=== PATIENT | female | born 1970 | race African-American/Black ===

== ENCOUNTER 2024-04-14 09:20 | Emergency (ER) | payer OTHER ==
[2024-04-14 09:42] VITALS: BP 136/91; PULSE 70; RESP 18; TEMP 97.8; BMI 20.5
[2024-04-14] MEDS ORDERED: IBUPROFEN 600 MG TABLET (FP) PO ONE (11:03)
[2024-04-14] MEDS: IBUPROFEN 600 MG TABLET (FP) PO ONE (11:04)
== END 2024-04-14 12:47 | disposition home or self-care (01) ==
LOC: JERFT 09:20
DX: S46.911A Strain of unspecified muscle, fascia and tendon at shoulder and upper arm level, right arm, initial encounter (principal); M54.2 Cervicalgia; R20.2 Paresthesia of skin; V43.12XA Car passenger injured in collision with other type car in nontraffic accident, initial encounter
CPT/HCPCS: 72125-TC; 73030-TC-RT-FY; 99283-25

== ENCOUNTER 2024-07-10 12:36 | Emergency (ER) | payer OTHER ==
[2024-07-10 12:52] VITALS: BP 164/99; PULSE 74; RESP 18; TEMP 98.6; BMI 22.1
[2024-07-10 13:30] LABS: BASO % 0.8 % (0-2.0); EOS % 3.5 % (0-4.5); HEMATOCRIT 32.8 % (32.4-45.2); HEMOGLOBIN 10.7 GM/dL (10.7-15.3); LYMPH % 39.7 % (8-40); MCHC 32.6 g/dl (32.0-36.0); MEAN CELL VOLUME 85.8 fl (80-96); MEAN PLT VOLUME 8.4 fl (7.5-11.1); MONO % 8.6 % (3.8-10.2); NEUT % 47.4 % (42.8-82.8); PLATELET COUNT 220 10^3/uL (134-434); RBC 3.82 M/mm3 (3.60-5.2); WHITE BLOOD COUNT 5.5 K/mm3 (4.0-10.0)
[2024-07-10 13:58] LABS: CHLORIDE 114 mmol/L (98-107); SODIUM 139 mmol/L (136-145)
[2024-07-10 14:00] LABS: BLOOD UREA NITROGEN 19.9 mg/dL (7-18); CO2 21 mmol/L (21-32)
[2024-07-10 14:01] LABS: ANION GAP 5 mmol/L (4-13); CALCIUM 8.5 mg/dL (8.5-10.1); MAGNESIUM 1.9 mg/dL (1.8-2.4); POTASSIUM 6.2 mmol/L (3.5-5.1)
[2024-07-10 14:03] LABS: GLUCOSE,RANDOM 72 mg/dL (74-106); SGOT/AST 70 U/L (15-37)
[2024-07-10 14:05] LABS: BILIRUBIN,TOTAL 0.2 mg/dL (0.2-1); CREATININE 2.8 mg/dL (0.55-1.3); PHOSPHOROUS 4.5 mg/dL (2.5-4.9); TOT PROT 6.4 g/dl (6.4-8.2)
[2024-07-10 14:06] LABS: SGPT/ALT 51 U/L (13-61)
[2024-07-10 14:08] LABS: ALK PHOS 113 U/L (45-117)
[2024-07-10] MEDS ORDERED: INSULIN REGULAR HUMAN 100 UNITS/ML *VIAL IVPUSH ONE (14:14)
[2024-07-10] MEDS ORDERED: CALCIUM GLUCONATE 10% - 1,000 MG/10 ML VIAL IVPUSH ONE (14:14)
[2024-07-10] MEDS ORDERED: SODIUM ZIRCONIUM CYCLOSILICATE (LOKELMA) 5 GM PACKET PO ONE (14:14)
[2024-07-10] MEDS ORDERED: DEXTROSE 50%-WATER - 25 GM/50 ML VIAL IVPUSH ONE ×2 (14:14→14:19)
[2024-07-10] MEDS ORDERED: ALBUTEROL SO4 0.5 % INH SOLN 2.5 MG/0.5 ML VIAL.NEB. NEB ONE (14:20)
[2024-07-10 14:56] LABS: HIV INTERPRETATION NEGATIVE (NEGATIVE)
[2024-07-10 16:12] LABS: POTASSIUM 5.2 mmol/L (3.5-5.1)
[2024-07-10 16:15] LABS: BLOOD UREA NITROGEN 19.3 mg/dL (7-18); CALCIUM 8.1 mg/dL (8.5-10.1)
[2024-07-10 16:19] LABS: CREATININE 2.7 mg/dL (0.55-1.3)
== END 2024-07-10 19:37 | disposition home or self-care (01) ==
LOC: JER 12:36
DX: E87.5 Hyperkalemia (principal)
CPT/HCPCS: 36415; 80048; 80053; 83735; 84100; 85025; 86803; 87389; 93005; 93010; 99284-25

== ENCOUNTER 2024-07-28 16:04 | Inpatient (IN) | payer OTHER ==
[2024-07-28 18:39] LABS: BASO % 0.2 % (0-2.0); EOS % 3.2 % (0-4.5); HEMATOCRIT 32.5 % (32.4-45.2); HEMOGLOBIN 10.2 GM/dL (10.7-15.3); LYMPH % 44.5 % (8-40); MCHC 31.5 g/dl (32.0-36.0); MEAN CELL VOLUME 88.7 fl (80-96); MEAN PLT VOLUME 8.4 fl (7.5-11.1); MONO % 9.5 % (3.8-10.2); NEUT % 42.6 % (42.8-82.8); PLATELET COUNT 184 10^3/uL (134-434); RBC 3.66 M/mm3 (3.60-5.2); RDW 17.9 % (11.6-15.6); WHITE BLOOD COUNT 4.8 K/mm3 (4.0-10.0)
[2024-07-28 19:07] LABS: CHLORIDE 112 mmol/L (98-107); SODIUM 139 mmol/L (136-145)
[2024-07-28 19:08] LABS: ALBUMIN 2.8 g/dl (3.4-5.0); CALCIUM 7.8 mg/dL (8.5-10.1); CO2 25 mmol/L (21-32)
[2024-07-28 19:09] LABS: BLOOD UREA NITROGEN 20.7 mg/dL (7-18); GLUCOSE,RANDOM 82 mg/dL (74-106); MAGNESIUM 1.7 mg/dL (1.8-2.4)
[2024-07-28 19:11] LABS: SGOT/AST 91 U/L (15-37); SGPT/ALT 49 U/L (13-61)
[2024-07-28 19:12] LABS: CREATININE 2.5 mg/dL (0.55-1.3); PHOSPHOROUS 4.2 mg/dL (2.5-4.9)
[2024-07-28 19:13] LABS: BILIRUBIN,TOTAL 0.6 mg/dL (0.2-1); TOT PROT 5.8 g/dl (6.4-8.2)
[2024-07-28 19:14] LABS: ALK PHOS 92 U/L (45-117)
[2024-07-28 19:21] LABS: ANION GAP 2 mmol/L (4-13); POTASSIUM 6.5 mmol/L (3.5-5.1)
[2024-07-28 20:28] LABS: POTASSIUM 5.9 mmol/L (3.5-5.1)
[2024-07-28 20:33] LABS: CREATININE 2.6 mg/dL (0.55-1.3)
[2024-07-28] MEDS: SODIUM CHLORIDE 0.9% 500 ML INFUS.BAG IV ONE (21:17)
[2024-07-28 21:18] LABS: HIV INTERPRETATION NEGATIVE (NEGATIVE)
[2024-07-28] MEDS: INSULIN ASPART SLIDING SCALE (NOVOLOG) 1 VIAL SQ SCH (23:59)
[2024-07-29] MEDS: MAGNESIUM 1GM/D5W - 1 GM/100 ML IVPB IVPB ONE (00:51)
[2024-07-29] MEDS: TACROLIMUS ANHYDROUS 1 MG CAPSULE PO SCH (00:52)
[2024-07-29] MEDS: MAGNESIUM SULF 50% (8.12 MEQ/2 ML-1 GM VIAL) IVPB ONE (02:53)
[2024-07-29] MEDS ORDERED: HEPARIN NA (PORCINE) 5,000 UNITS/ML 1ML VIAL ONE ×3 (06:37→21:33)
[2024-07-29] MEDS: HEPARIN NA (PORCINE) 5,000 UNITS/ML 1ML VIAL SQ SCH (07:08)
[2024-07-29 07:41] LABS: CHLORIDE 111 mmol/L (98-107); SODIUM 139 mmol/L (136-145)
[2024-07-29 07:52] LABS: POTASSIUM 6.5 mmol/L (3.5-5.1)
[2024-07-29 07:55] LABS: HEMATOCRIT 29.4 % (32.4-45.2); HEMOGLOBIN 9.4 GM/dL (10.7-15.3); MCH 27.9 pg (25.7-33.7); MCHC 31.9 g/dl (32.0-36.0); MEAN CELL VOLUME 87.5 fl (80-96); MEAN PLT VOLUME 8.3 fl (7.5-11.1); PLATELET COUNT 168 10^3/uL (134-434); RBC 3.36 M/mm3 (3.60-5.2); RDW 17.9 % (11.6-15.6); WHITE BLOOD COUNT 4.4 K/mm3 (4.0-10.0)
[2024-07-29 07:57] LABS: ALBUMIN 2.5 g/dl (3.4-5.0); BLOOD UREA NITROGEN 17.7 mg/dL (7-18); GLUCOSE,RANDOM 123 mg/dL (74-106)
[2024-07-29 07:58] LABS: ANION GAP 1 mmol/L (4-13); CALCIUM 8.1 mg/dL (8.5-10.1); CO2 26 mmol/L (21-32)
[2024-07-29 08:00] LABS: CREATININE 2.4 mg/dL (0.55-1.3); SGOT/AST 42 U/L (15-37); SGPT/ALT 40 U/L (13-61)
[2024-07-29 08:01] LABS: BILIRUBIN,TOTAL 0.3 mg/dL (0.2-1)
[2024-07-29 08:02] LABS: ALK PHOS 85 U/L (45-117)
[2024-07-29] MEDS ORDERED: ACETAMINOPHEN 325 MG TABLET (FP) PO PRN (09:23)
[2024-07-29] MEDS ORDERED: amLODIPine BESYLATE 2.5 MG TABLET (FP) ONE (09:29)
[2024-07-29] MEDS ORDERED: FERROUS SO4 325 MG TABLET (FP) ONE (09:30)
[2024-07-29] MEDS: FERROUS SO4 325 MG TABLET (FP) PO SCH (09:42)
[2024-07-29] MEDS: amLODIPine BESYLATE 2.5 MG TABLET (FP) PO SCH (09:42)
[2024-07-29] MEDS: CITALOPRAM HYDROBROMIDE 20 MG TABLET PO SCH (09:42)
[2024-07-29] MEDS: SODIUM ZIRCONIUM CYCLOSILICATE (LOKELMA) 10 GM PACKET PO SCH (09:42)
[2024-07-29] MEDS: CYANOCOBALAMIN 1,000 MCG TABLET (FP) PO SCH (09:43)
[2024-07-29] MEDS: TACROLIMUS ANHYDROUS 5 MG, TACROLIMUS ANHYDROUS 1 MG PO SCH (09:43)
[2024-07-29] MEDS: CHOLECALCIFEROL (VIT D3) 1,000 UNIT (25 MCG) TABLET PO SCH (09:43)
[2024-07-29] MEDS ORDERED: NITROFURANTOIN MONOHYD/M-CRYST 100 MG CAPSULE PO SCH (10:00)
[2024-07-29 11:36] LABS: CHLORIDE 106 mmol/L (98-107); SODIUM 134 mmol/L (136-145)
[2024-07-29 11:38] LABS: BLOOD UREA NITROGEN 16.4 mg/dL (7-18); CO2 24 mmol/L (21-32)
[2024-07-29 11:39] LABS: GLUCOSE,RANDOM 275 mg/dL (74-106)
[2024-07-29 11:42] LABS: CREATININE 2.6 mg/dL (0.55-1.3)
[2024-07-29 11:52] LABS: ANION GAP 3 mmol/L (4-13); POTASSIUM 6.4 mmol/L (3.5-5.1)
[2024-07-29] MEDS: CALCIUM ACETATE 667 MG CAPSULE (FP) PO SCH (17:46)
[2024-07-29] MEDS ORDERED: QUEtiapine FUMARATE 25 MG TABLET ONE (21:32)
[2024-07-29] MEDS ORDERED: MONTELUKAST NA 10 MG TABLET ONE (21:36)
[2024-07-29] MEDS: QUEtiapine FUMARATE 50 MG TABLET PO SCH (22:20)
[2024-07-29] MEDS: MONTELUKAST NA 10 MG TABLET PO SCH (22:20)
[2024-07-30] MEDS ORDERED: HEPARIN NA (PORCINE) 5,000 UNITS/ML 1ML VIAL ONE ×3 (06:04→21:39)
[2024-07-30 08:27] LABS: CHLORIDE 111 mmol/L (98-107); POTASSIUM 6.4 mmol/L (3.5-5.1); SODIUM 138 mmol/L (136-145)
[2024-07-30 08:28] LABS: ANION GAP 7 mmol/L (4-13); BLOOD UREA NITROGEN 17.8 mg/dL (7-18); CALCIUM 8.2 mg/dL (8.5-10.1); CO2 20 mmol/L (21-32)
[2024-07-30 08:29] LABS: GLUCOSE,RANDOM 135 mg/dL (74-106)
[2024-07-30 08:32] LABS: CREATININE 2.5 mg/dL (0.55-1.3)
[2024-07-30] MEDS ORDERED: ALBUTEROL SO4 0.083% IH SOL 2.5 MG/3 ML VIAL.NEB. NEB ONE (12:40)
[2024-07-30] MEDS: ALBUTEROL SO4 0.083% IH SOL 2.5 MG/3 ML VIAL.NEB. NEB ONE (13:34)
[2024-07-30 17:43] LABS: BLOOD UREA NITROGEN 18.4 mg/dL (7-18); CALCIUM 8.1 mg/dL (8.5-10.1); CREATININE 2.5 mg/dL (0.55-1.3)
[2024-07-30 17:46] LABS: POTASSIUM 5.6 mmol/L (3.5-5.1)
[2024-07-30] MEDS ORDERED: QUEtiapine FUMARATE 25 MG TABLET ONE (21:38)
[2024-07-30] MEDS ORDERED: MONTELUKAST NA 10 MG TABLET ONE (21:39)
[2024-07-31 08:06] LABS: BLOOD UREA NITROGEN 19.3 mg/dL (7-18); CALCIUM 8.1 mg/dL (8.5-10.1)
[2024-07-31 08:11] LABS: CREATININE 2.6 mg/dL (0.55-1.3); POTASSIUM 5.6 mmol/L (3.5-5.1)
[2024-07-31 16:39] VITALS: BMI 22.3
[2024-07-31] MEDS: SODIUM CHLORIDE 0.45% 1,000 ML IV SCH (18:40)
[2024-07-31] MEDS: SODIUM ZIRCONIUM CYCLOSILICATE (LOKELMA) 10 GM PACKET PO SCH (21:31)
[2024-08-01 07:46] LABS: BASO % 0.5 % (0-2.0); EOS % 3.4 % (0-4.5); HEMATOCRIT 29.6 % (32.4-45.2); HEMOGLOBIN 9.4 GM/dL (10.7-15.3); LYMPH % 53.4 % (8-40); MCH 27.8 pg (25.7-33.7); MCHC 31.7 g/dl (32.0-36.0); MEAN CELL VOLUME 87.6 fl (80-96); MEAN PLT VOLUME 8.5 fl (7.5-11.1); NEUT % 35.7 % (42.8-82.8); PLATELET COUNT 155 10^3/uL (134-434); RBC 3.37 M/mm3 (3.60-5.2); RDW 17.9 % (11.6-15.6)
[2024-08-01 07:51] LABS: POTASSIUM 5.9 mmol/L (3.5-5.1)
[2024-08-01 07:58] LABS: CALCIUM 8.2 mg/dL (8.5-10.1)
[2024-08-01 07:59] LABS: ALBUMIN 2.4 g/dl (3.4-5.0); BLOOD UREA NITROGEN 20.2 mg/dL (7-18)
[2024-08-01 08:00] LABS: MAGNESIUM 1.7 mg/dL (1.8-2.4)
[2024-08-01 08:02] LABS: CREATININE 2.5 mg/dL (0.55-1.3)
[2024-08-01 08:03] LABS: BILIRUBIN,TOTAL 0.4 mg/dL (0.2-1); TOT PROT 4.9 g/dl (6.4-8.2)
[2024-08-01] MEDS: MAGNESIUM 2GM/50ML STERILE WATER IVPB IVPB ONE (08:18)
[2024-08-01] MEDS: INSULIN (LEVEMIR) 100 UNITS/ML UNITS SQ SCH (09:00)
[2024-08-01 13:55] LABS: POTASSIUM PLASMA 5.3 mmol/L (3.5-5.1)
[2024-08-01] MEDS: METOPROLOL TARTRATE 50 MG TABLET (FP) PO SCH (21:48)
[2024-08-01] MEDS: DEXTROSE 50%-WATER 25 GM/50 ML DISP.SYRIN IVPUSH PRN (23:35)
[2024-08-02 07:25] LABS: BASO % 0.8 % (0-2.0); EOS % 1.7 % (0-4.5); HEMATOCRIT 34.4 % (32.4-45.2); HEMOGLOBIN 10.9 GM/dL (10.7-15.3); LYMPH % 29.4 % (8-40); MCH 28.2 pg (25.7-33.7); MCHC 31.7 g/dl (32.0-36.0); MEAN CELL VOLUME 89.1 fl (80-96); MEAN PLT VOLUME 8.5 fl (7.5-11.1); MONO % 7.3 % (3.8-10.2); NEUT % 60.8 % (42.8-82.8); PLATELET COUNT 170 10^3/uL (134-434); RBC 3.86 M/mm3 (3.60-5.2); RDW 18.2 % (11.6-15.6); WHITE BLOOD COUNT 3.3 K/mm3 (4.0-10.0)
[2024-08-02 07:48] LABS: POTASSIUM 5.7 mmol/L (3.5-5.1)
[2024-08-02 07:55] LABS: CALCIUM 8.5 mg/dL (8.5-10.1)
[2024-08-02 07:56] LABS: ALBUMIN 2.9 g/dl (3.4-5.0); BLOOD UREA NITROGEN 23.9 mg/dL (7-18); MAGNESIUM 2.3 mg/dL (1.8-2.4)
[2024-08-02 07:58] LABS: CREATININE 2.4 mg/dL (0.55-1.3)
[2024-08-02 07:59] LABS: PHOSPHOROUS 4.9 mg/dL (2.5-4.9)
[2024-08-02 08:00] LABS: BILIRUBIN,TOTAL 0.4 mg/dL (0.2-1); TOT PROT 5.8 g/dl (6.4-8.2)
[2024-08-02] MEDS: amLODIPine BESYLATE 5 MG TABLET (FP) PO SCH (09:42)
[2024-08-02] MEDS: INSULIN ASPART SLIDING SCALE (NOVOLOG) 1 VIAL SQ SCH ×2 (11:56→17:53)
[2024-08-02] MEDS ORDERED: DEXTROSE 50%-WATER 25 GM/50 ML DISP.SYRIN IVPUSH PRN (13:12)
[2024-08-02] MEDS: INSULIN (NOVOLOG) ASPART 100 UNITS/ML 10ML VIAL SQ ONE (18:47)
[2024-08-02 19:47] LABS: CHLORIDE 107 mmol/L (98-107); POTASSIUM 5.6 mmol/L (3.5-5.1); SODIUM 134 mmol/L (136-145)
[2024-08-02 19:48] LABS: CALCIUM 7.8 mg/dL (8.5-10.1)
[2024-08-02 19:49] LABS: ANION GAP 4 mmol/L (4-13); BLOOD UREA NITROGEN 23.1 mg/dL (7-18); CO2 23 mmol/L (21-32)
[2024-08-02 19:51] LABS: CREATININE 2.6 mg/dL (0.55-1.3)
[2024-08-02 19:54] LABS: GLUCOSE,RANDOM 499 mg/dL (74-106)
[2024-08-02] MEDS ORDERED: DEXTROSE 50%-WATER 25 GM/50 ML DISP.SYRIN ONE (20:50)
[2024-08-02] MEDS: DEXTROSE 50%-WATER 25 GM/50 ML DISP.SYRIN IVPUSH ONE (21:18)
[2024-08-03] MEDS: INSULIN GLARGINE (LANTUS) 100 UNITS/ML UNITS SQ SCH (06:22)
[2024-08-03 07:12] LABS: BASO % 0.8 % (0-2.0); EOS % 3.7 % (0-4.5); HEMATOCRIT 29.6 % (32.4-45.2); HEMOGLOBIN 9.6 GM/dL (10.7-15.3); LYMPH % 51.3 % (8-40); MCH 28.3 pg (25.7-33.7); MCHC 32.3 g/dl (32.0-36.0); MEAN CELL VOLUME 87.6 fl (80-96); MEAN PLT VOLUME 8.6 fl (7.5-11.1); MONO % 8.1 % (3.8-10.2); NEUT % 36.1 % (42.8-82.8); PLATELET COUNT 148 10^3/uL (134-434); RBC 3.38 M/mm3 (3.60-5.2); RDW 17.8 % (11.6-15.6); WHITE BLOOD COUNT 4.6 K/mm3 (4.0-10.0)
[2024-08-03 07:25] LABS: POTASSIUM 5.3 mmol/L (3.5-5.1)
[2024-08-03 07:32] LABS: CREATININE 2.5 mg/dL (0.55-1.3)
[2024-08-03 07:34] LABS: ALBUMIN 2.4 g/dl (3.4-5.0); BLOOD UREA NITROGEN 23.3 mg/dL (7-18)
[2024-08-03 07:35] LABS: BILIRUBIN,TOTAL 0.3 mg/dL (0.2-1); TOT PROT 4.9 g/dl (6.4-8.2)
[2024-08-03 07:36] LABS: CALCIUM 8.1 mg/dL (8.5-10.1)
[2024-08-03 07:37] LABS: MAGNESIUM 2.1 mg/dL (1.8-2.4)
[2024-08-03] MEDS: INSULIN GLARGINE (LANTUS) 100 UNITS/ML UNITS SQ ONE (10:51)
[2024-08-03 15:25] VITALS: BP 145/93; PULSE 77; RESP 18; TEMP 98.1
[2024-08-07 19:07] LABS: RENIN ACTIVITY(PRA) < 0.167 ng/mL/hr (0.167-5.380)
== END 2024-08-03 15:38 | disposition home or self-care (01) | DRG 420 ==
LOC: JER 16:04 → JERBED 20:49 → J4W 07-30 22:39 → OBSVTOIN 08-02 09:37
PROVIDERS: ADMIT Internal Medicine; ATTEND Internal Medicine
DX: E11.649 Type 2 diabetes mellitus with hypoglycemia without coma (principal); E87.5 Hyperkalemia; E11.22 Type 2 diabetes mellitus with diabetic chronic kidney disease; R74.01 Elevation of levels of liver transaminase levels; D64.9 Anemia, unspecified; E83.42 Hypomagnesemia; I12.9 Hypertensive chronic kidney disease with stage 1 through stage 4 chronic kidney disease, or unspecified chronic kidney disease; N18.4 Chronic kidney disease, stage 4 (severe); E83.39 Other disorders of phosphorus metabolism
CPT/HCPCS: 36415; 71046-TC-FY; 80048; 80053; 82088; 82436; 82533; 82962; 83036; 83735; 83930; 83935; 84100; 84132; 84133; 84244; 84300; 84484; 85025; 85027; 86803; 87389; 93005; 93010; 99285-25; G0378; J1644